=== PATIENT | male | born 1940 | race Caucasian/White ===

== ENCOUNTER 2024-04-13 06:51 | Inpatient (IN) | payer MEDICARE ==
[~2024-04-13] VITALS: Ht 182.9 cm; Wt 90.7 kg
[2024-04-13] MEDS ORDERED: ACETAMINOPHEN ES 500 MG TABLET ONE (07:16)
[2024-04-13] MEDS: IV NS 0.9% 1,000 ML BAG IV ONE (07:26)
[2024-04-13] MEDS: ACETAMINOPHEN ES 500 MG TABLET PO ONE (07:27)
[2024-04-13 07:28] LABS: EOSINOPHILS % (AUTO) 0.6 % (0.0-6.0); HEMATOCRIT 40 % (39-51); HEMOGLOBIN 13.8 g/dL (13.5-17.5); LYMPHOCYTES # (AUTO) 1.1 K/uL (0.8-4.8); LYMPHOCYTES % (AUTO) 24.6 % (20.0-44.0); MEAN CORPUSCULAR HEMOGLOBIN 32 PG (26.0-33.0); MEAN CORPUSCULAR HGB CONC 34 g/dl (31.0-36.0); MEAN CORPUSCULAR VOLUME 92 fL (80-96); MONOCYTES # (AUTO) 0.6 K/uL (0.1-1.30); NEUTROPHILS # (AUTO) 2.7 K/uL (1.8-8.9); NEUTROPHILS % (AUTO) 60.8 % (43.0-81.0); PLATELET COUNT (AUTO) 82 K/uL (150-450); RED BLOOD CELL COUNT(AUTO) 4.39 MIL/uL (4.5-6.0); WHITE BLOOD COUNT (AUTO) 4.4 K/uL (4.3-11.0)
[2024-04-13 07:38] LABS: CALCIUM, SERUM 8.5 mg/dL (8.5-10.1); CARBON DIOXIDE 27 mmol/L (21-32); CHLORIDE 103 mmol/L (98-107); CREATININE 1.2 mg/dL (0.6-1.3); GLUCOSE 100 mg/dL (74-106); POTASSIUM 4.1 mmol/L (3.5-5.1); SODIUM SERUM 139 mmol/L (136-145); UREA NITROGEN, BLOOD 22 mg/dL (7-18)
[2024-04-13 07:45] LABS: ALANINE AMINOTRANSFERASE 40 U/L (12-78); ALBUMIN 3.1 g/dL (3.4-5.0); ALKALINE PHOSPHATASE 50 U/L (46-116); ASPARTATE AMINOTRANSFERASE 71 U/L (15-37); BILIRUBIN,DIRECT 0.2 mg/dL (0.0-0.2); BILIRUBIN,TOTAL 0.8 mg/dL (0.2-1.0); TOTAL PROTEIN, SERUM 6.7 g/dL (6.4-8.2)
[2024-04-13 07:46] LABS: LACTIC ACID 1.2 mmol/L (0.4-2.0)
[2024-04-13 07:48] LABS: INR 1.24 (0.91-1.10); PARTIAL THROMBOPLASTIN TIME 30.4 SEC (24.3-34.3)
[2024-04-13 08:57] LABS: LYMPHOCYTES % (MANUAL) 22 % (16-48); MONOCYTES % (MANUAL) 6 % (0-11.0)
[2024-04-13 08:58] LABS: PLATELET ESTIMATE DECREASED
[2024-04-13 09:00] LABS: BAND % (MANUAL) 2 % (0.0-5.0); NEUTROPHILS % (MANUAL) 64 (42-76); REACTIVE LYMPHOCYTES 6 % (0-0)
[2024-04-13] MEDS ORDERED: BRIN15DR EACHEYE (09:06)
[2024-04-13] MEDS ORDERED: TADA5TAB2 PO (09:06)
[2024-04-13] MEDS ORDERED: GABA300C PO (09:06)
[2024-04-13] MEDS ORDERED: PRIM50TA27 PO (09:06)
[2024-04-13] MEDS ORDERED: FINA5TAB11 PO (09:06)
[2024-04-13] MEDS ORDERED: FLUT1BLS IH (09:06)
[2024-04-13] MEDS ORDERED: PRAM0.253 PO (09:06)
[2024-04-13] MEDS ORDERED: CLON2TAB11 PO (09:06)
[2024-04-13] MEDS ORDERED: SUMA25TA10 PO (09:06)
[2024-04-13] MEDS ORDERED: ASPI-1169 PO (09:06)
[2024-04-13] MEDS ORDERED: ALFU10TA10 PO (09:06)
[2024-04-13] MEDS ORDERED: LEVO150T PO (09:06)
[2024-04-13] MEDS ORDERED: LOSA100T31 PO (09:06)
[2024-04-13] MEDS ORDERED: ROSU40TA PO (09:06)
[2024-04-13] MEDS ORDERED: DIGO250T PO (09:06)
[2024-04-13] MEDS ORDERED: METO-357 PO (09:06)
[2024-04-13] MEDS ORDERED: NETA2.5D EACHEYE (09:06)
[2024-04-13] MEDS ORDERED: FURO-145 PO (09:06)
[2024-04-13] MEDS ORDERED: TRAV5DRO11 EACHEYE (09:06)
[2024-04-13] MEDS ORDERED: ALBU8.5H8 IH (09:06)
[2024-04-13] MEDS ORDERED: MECL-182 PO (09:06)
[2024-04-13] MEDS ORDERED: CLOP75TA15 PO (09:06)
[2024-04-13] MEDS: CEFTRIAXONE 1GM BAG (ER ONLY) 1 GM/50 ML PIGGYBACK IV ONE (10:00)
[2024-04-13] MEDS: AZITHROMYCIN 500 MG in IV D5W 250 ML IV ONE (10:30)
[2024-04-13 10:51] LABS: APPEARANCE,URINE CLEAR (CLEAR); BILIRUBIN,URINE NEGATIVE (NEGATIVE); BLOOD, URINE 2+ Ery/uL (NEGATIVE); COLOR,URINE YELLOW (YELLOW); KETONES,URINE NEGATIVE (NEGATIVE); LEUKOCYTE ESTERASE ,URINE NEGATIVE (NEGATIVE); NITRITE, URINE NEGATIVE (NEGATIVE); PROTEIN,URINE 1+ mg/dl (NEGATIVE); UGLUCOSE NEGATIVE (NEGATIVE); UROBILINOGEN,URINE 0.2 EU/dL (0.2)
[2024-04-13 10:59] LABS: BACTERIA,URINE Rare /HPF (None Seen); HYALINE CASTS, URINE Rare /LPF (None Seen); SQUAMOUS EPITHELIAL CELL,UR Few /HPF (None Seen); URINE AMORPHOUS URATE Few /HPF (None Seen)
[2024-04-13 11:00] LABS: ADD URINE CULTURE NO; WBC,URINE 0-2 /HPF (0-3)
[2024-04-13 12:00] VITALS: BP 123/54; TEMP 98; O2SAT 95
[2024-04-13] MEDS ORDERED: ALBUTEROL FS 2.5 MG/3 ML VIAL.NEB NEB PRN (12:00)
[2024-04-13] MEDS: BRINZOLAMIDE 1 % OPHTH SOLN 10 ML BOTTLE EACHEYE SCH (13:38)
[2024-04-13 16:00] VITALS: BP 142/85; TEMP 98.4; O2SAT 98
[2024-04-13] MEDS ORDERED: ONDANSETRON HCL/PF 4 MG/2 ML VIAL IVP PRN (16:00)
[2024-04-13] MEDS ORDERED: MAG HYDROX/AL HYDROX/SIMETH 30 ML UDC PO PRN (16:00)
[2024-04-13] MEDS ORDERED: MAGNESIUM HYDROXIDE 30 ML UDC PO PRN (16:00)
[2024-04-13] MEDS ORDERED: Z GUARD REMEDY 4 OZ OINT TP PRN (16:00)
[2024-04-13] MEDS: GABAPENTIN 300 MG CAPSULE PO SCH (16:35)
[2024-04-13] MEDS: ENOXAPARIN SODIUM 30 MG/0.3 ML DISP.SYRIN SQ SCH (16:36)
[2024-04-13] MEDS: IV NS 0.9% 1,000 ML IV PRN (20:40)
[2024-04-13 20:43] VITALS: BP 143/66; TEMP 99.1; O2SAT 97
[2024-04-13 23:48] VITALS: BP 96/60; TEMP 98.3; O2SAT 95
[2024-04-14] VITALS: BP 96/60; TEMP 98.3; O2SAT 95
[2024-04-14 04:00] VITALS: BP 105/63; TEMP 98.5; O2SAT 97
[2024-04-14 06:47] LABS: BASOPHILS # (AUTO) 0.1 K/uL (0.0-0.2); BASOPHILS % (AUTO) 0.9 % (0.0-2.0); EOSINOPHILS % (AUTO) 0.2 % (0.0-6.0); HEMATOCRIT 39 % (39-51); HEMOGLOBIN 13.8 g/dL (13.5-17.5); LYMPHOCYTES # (AUTO) 1.7 K/uL (0.8-4.8); LYMPHOCYTES % (AUTO) 29.1 % (20.0-44.0); MEAN CORPUSCULAR HEMOGLOBIN 32 PG (26.0-33.0); MEAN CORPUSCULAR HGB CONC 35 g/dl (31.0-36.0); MEAN CORPUSCULAR VOLUME 91 fL (80-96); MONOCYTES # (AUTO) 0.7 K/uL (0.1-1.30); MONOCYTES % (AUTO) 12.2 % (2.0-12.0); NEUTROPHILS # (AUTO) 3.4 K/uL (1.8-8.9); NEUTROPHILS % (AUTO) 57.6 % (43.0-81.0); PLATELET COUNT (AUTO) 81 K/uL (150-450); RED BLOOD CELL COUNT(AUTO) 4.34 MIL/uL (4.5-6.0); RED CELL DISTRIBUTION WIDTH 13.8 % (11.5-15.0); WHITE BLOOD COUNT (AUTO) 5.9 K/uL (4.3-11.0)
[2024-04-14 06:53] LABS: CALCIUM, SERUM 8.1 mg/dL (8.5-10.1); CARBON DIOXIDE 20 mmol/L (21-32); CHLORIDE 106 mmol/L (98-107); CREATININE 1.1 mg/dL (0.6-1.3); GLUCOSE 92 mg/dL (74-106); MAGNESIUM 1.9 mg/dL (1.8-2.4); PHOSPHORUS 2.5 mg/dL (2.5-4.9); POTASSIUM 3.9 mmol/L (3.5-5.1); SODIUM SERUM 139 mmol/L (136-145); UREA NITROGEN, BLOOD 14 mg/dL (7-18)
[2024-04-14] MEDS: LEVOTHYROXINE SODIUM 75 MCG TABLET PO SCH (07:51)
[2024-04-14 08:00] VITALS: BP 117/60; TEMP 97.2; O2SAT 94
[2024-04-14] MEDS: ASPIRIN 81 MG TAB.CHEW PO SCH (08:22)
[2024-04-14] MEDS: FINASTERIDE (5 MG) 5 MG TABLET PO SCH (08:23)
[2024-04-14] MEDS: CLOPIDOGREL BISULFATE 75 MG TABLET PO SCH (08:23)
[2024-04-14] MEDS: LOSARTAN POTASSIUM 50 MG TABLET PO SCH (08:23)
[2024-04-14] MEDS: FLUTICASONE/VILANTEROL 1 EACH BLST.W.DEV IH SCH (08:27)
[2024-04-14] MEDS ORDERED: Medication Not On Formulary EA (Tadalafil (Cialis) 5 MG) PO SCH (09:00)
[2024-04-14 09:34] LABS: ANISOCYTOSIS 1+; BAND % (MANUAL) 1 % (0.0-5.0); BASOPHILS % (MANUAL) 0 % (0.0-2.0); EOSINOPHILS % (MANUAL) 0 % (0-4); LYMPHOCYTES % (MANUAL) 25 % (16-48); MONOCYTES % (MANUAL) 13 % (0-11.0); NEUTROPHILS % (MANUAL) 61 (42-76); OVALOCYTES 1+; PLATELET ESTIMATE ADEQUATE
[2024-04-14] MEDS: CEFTRIAXONE 1 G in IV D5W 50 ML IV SCH (10:13)
[2024-04-14] MEDS: AZITHROMYCIN 500 MG in IV D5W 250 ML IV SCH (10:13)
[2024-04-14 16:00] VITALS: BP 135/77; TEMP 97.2; O2SAT 95
[2024-04-14] MEDS: ACETAMINOPHEN 325 MG TABLET PO PRN (21:04)
[2024-04-15] VITALS: BP 150/72; TEMP 98.4; O2SAT 96
[2024-04-15 07:39] LABS: BASOPHILS % (AUTO) 0.5 % (0.0-2.0); EOSINOPHILS % (AUTO) 0.5 % (0.0-6.0); HEMATOCRIT 41 % (39-51); HEMOGLOBIN 14.2 g/dL (13.5-17.5); LYMPHOCYTES # (AUTO) 3.3 K/uL (0.8-4.8); LYMPHOCYTES % (AUTO) 41.9 % (20.0-44.0); MEAN CORPUSCULAR HEMOGLOBIN 31 PG (26.0-33.0); MEAN CORPUSCULAR HGB CONC 35 g/dl (31.0-36.0); MEAN CORPUSCULAR VOLUME 91 fL (80-96); MONOCYTES # (AUTO) 0.7 K/uL (0.1-1.30); MONOCYTES % (AUTO) 9.1 % (2.0-12.0); NEUTROPHILS # (AUTO) 3.8 K/uL (1.8-8.9); PLATELET COUNT (AUTO) 94 K/uL (150-450); RED BLOOD CELL COUNT(AUTO) 4.52 MIL/uL (4.5-6.0); RED CELL DISTRIBUTION WIDTH 13.7 % (11.5-15.0); WHITE BLOOD COUNT (AUTO) 7.9 K/uL (4.3-11.0)
[2024-04-15 08:00] VITALS: BP 157/92; TEMP 97.7; O2SAT 96
[2024-04-15] MEDS ORDERED: clonazePAM 2 MG TABLET PO SCH ×2 (08:00→09:00)
[2024-04-15] MEDS ORDERED: SUMATRIPTAN SUCCINATE 25 MG TABLET PO PRN (08:00)
[2024-04-15] MEDS ORDERED: MECLIZINE HCL 12.5 MG TABLET PO PRN (08:00)
[2024-04-15 08:07] LABS: CALCIUM, SERUM 8.2 mg/dL (8.5-10.1); CARBON DIOXIDE 21 mmol/L (21-32); CHLORIDE 107 mmol/L (98-107); GLUCOSE 90 mg/dL (74-106); POTASSIUM 3.7 mmol/L (3.5-5.1); SODIUM SERUM 140 mmol/L (136-145); UREA NITROGEN, BLOOD 13 mg/dL (7-18)
[2024-04-15] MEDS: PRIMIDONE 50 MG TABLET PO SCH (09:00)
[2024-04-15] MEDS ORDERED: Medication Not On Formulary EA (Netarsudil Mesylate (Rhopressa) 1 DROP) EACHEYE SCH (09:00)
[2024-04-15] MEDS: METOPROLOL SUCCINATE 50 MG TAB.SR.24H PO SCH (09:21)
[2024-04-15] MEDS: PRAMIPEXOLE DI-HCL 0.25 MG TABLET PO SCH (09:23)
[2024-04-15] MEDS: clonazePAM 1 MG TABLET PO SCH (09:54)
[2024-04-15 12:00] VITALS: BP 134/73
[2024-04-15] MEDS: DIGOXIN 0.25 MG TABLET PO SCH (12:45)
[2024-04-15 13:05] LABS: BAND % (MANUAL) 4 % (0.0-5.0); LYMPHOCYTES % (MANUAL) 14 % (16-48); MONOCYTES % (MANUAL) 3 % (0-11.0); NEUTROPHILS % (MANUAL) 54 (42-76); REACTIVE LYMPHOCYTES 25 % (0-0)
[2024-04-15 13:07] LABS: ANISOCYTOSIS 1+; OVALOCYTES 1+; PLATELET ESTIMATE DECREASED
[2024-04-15 16:00] VITALS: BP 138/94; TEMP 97.8; O2SAT 96
[2024-04-15] MEDS: LATANOPROST EYE DROP 0.005% 2.5 ML BOTTLE EACHEYE SCH (21:16)
[2024-04-16] VITALS: BP 130/51; TEMP 98.1; O2SAT 94
[2024-04-16 08:00] VITALS: BP 170/54; TEMP 97.7; O2SAT 97
[2024-04-16 12:00] VITALS: BP 103/69; TEMP 97.9; O2SAT 97
[2024-04-16 12:05] LABS: THYROID STIMULATING HORMONE 2.56 uIU/mL (0.358-3.74)
[2024-04-16 16:00] VITALS: BP 131/54; TEMP 97.5; O2SAT 98
[2024-04-16 20:00] VITALS: BP 137/78; TEMP 98.8; O2SAT 94
[2024-04-17] VITALS: BP 136/55; TEMP 98.8; O2SAT 95
[2024-04-17 08:00] VITALS: BP 132/74; TEMP 98.4; O2SAT 95
[2024-04-17 09:40] VITALS: BP 132/74
[2024-04-17] MEDS ORDERED: AZIT500T4 PO (09:48)
== END 2024-04-17 15:37 | DRG 193 ==
LOC: ER 07:01 → MEDSG1 10:14 → TELE1 04-16 08:18 → MEDSG1 04-17 09:30
PROVIDERS: ADMIT Internal Medicine; ATTEND Internal Medicine
DX: J15.9 Unspecified bacterial pneumonia (principal); E43 Unspecified severe protein-calorie malnutrition; J44.0 Chronic obstructive pulmonary disease with (acute) lower respiratory infection; H81.09 Meniere's disease, unspecified ear; E86.0 Dehydration; I50.9 Heart failure, unspecified; I11.0 Hypertensive heart disease with heart failure; R29.6 Repeated falls; Z79.899 Other long term (current) drug therapy; Z79.51 Long term (current) use of inhaled steroids; Z79.82 Long term (current) use of aspirin; Z79.02 Long term (current) use of antithrombotics/antiplatelets; Z98.890 Other specified postprocedural states; I25.10 Atherosclerotic heart disease of native coronary artery without angina pectoris; Z95.1 Presence of aortocoronary bypass graft; E78.5 Hyperlipidemia, unspecified; E03.9 Hypothyroidism, unspecified; E88.09 Other disorders of plasma-protein metabolism, not elsewhere classified; G62.9 Polyneuropathy, unspecified; H91.90 Unspecified hearing loss, unspecified ear
CPT/HCPCS: 36415; 70450-TC; 71045-TC; 80048-TC; 80061-TC; 80076-TC; 81001; 83605-TC; 83735-TC; 84100-TC; 84439-TC; 84443-TC; 84484-TC; 85025-TC; 85730-TC; 87040-TC; 87086-TC; 92526; 92611-TC; 93307-TC; 97110-TC; 97116-TC; 97530-TC; 97535-TC; A4223; G0378; J0456; J0696; J1650; J7030; J7040; J7060